=== PATIENT | female | born 1995 | race Caucasian/White ===

== ENCOUNTER 2022-08-05 07:05 | Inpatient (IN) | payer SELFPAY ==
[2022-08-05] MEDS ORDERED: Nalbuphine 10 MG/0.5 ML Syringe IVPUSH PRN (07:17)
[2022-08-05] MEDS ORDERED: Oxytocin/Lactated Ringers 10 UNIT/1,000 ML BAG IV SCH ×2 (07:30→23:00)
[2022-08-05] MEDS ORDERED: Misoprostol 25 MCG (1/4 of 100 MCG) Tab VAG ONE (08:21)
[2022-08-05] MEDS ORDERED: fentaNYL 100 MCG/2 ML SDV EPIDUR PRN (09:52)
[2022-08-05] MEDS ORDERED: ePHEDrine 50 MG/ML SDV IVPUSH PRN (09:52)
[2022-08-05] MEDS ORDERED: diphenhydrAMINE 50 MG/ML SDV IVPUSH PRN (09:52)
[2022-08-05] MEDS: Misoprostol 25 MCG (1/4 of 100 MCG) Tab VAG SCH ×2 (12:30→16:35)
[2022-08-05] MEDS ORDERED: Misoprostol 25 MCG (1/4 of 100 MCG) Tab VAG SCH (12:30)
[2022-08-05] MEDS: Lactated Ringers 1,000 ML IV SCH ×2 (20:24→23:06)
[2022-08-05] MEDS: Bupivacaine/fentaNYL/NS 100 ML Bag EPIDUR PRN (20:38)
[2022-08-05] MEDS ORDERED: Ondansetron 4 MG/2 ML SDV IVPUSH PRN (23:00)
[2022-08-05] MEDS ORDERED: Calcium Carbonate 500 MG Tab.Chew PO PRN (23:00)
[2022-08-05] MEDS: Oxytocin/Lactated Ringers 10 UNIT/1,000 ML BAG IV SCH (23:03)
[2022-08-06] MEDS: Bupivacaine/fentaNYL/NS 100 ML Bag EPIDUR PRN (04:48)
[2022-08-06] MEDS: Lactated Ringers 1,000 ML IV SCH ×2 (05:36→08:57)
[2022-08-06] MEDS ORDERED: Bupivacaine 0.25% 10 ML SDV ONE (06:00)
[2022-08-06] MEDS ORDERED: Lidocaine 1% 10 ML MDV ONE (06:00)
[2022-08-06] MEDS: Oxytocin/Lactated Ringers 10 UNIT/1,000 ML BAG IV SCH (08:58)
[2022-08-06] MEDS ORDERED: Citric Acid/Sodium Citrate Solution 30 ML Cup PO ONE (10:49)
[2022-08-06] MEDS ORDERED: Metoclopramide 10 MG/2 ML SDV IVPUSH ONE (10:49)
[2022-08-06] MEDS ORDERED: Sodium Chloride 0.9% 10 ML Syringe FLUSH PRN (10:49)
[2022-08-06] MEDS ORDERED: Citric Acid/Sodium Citrate Solution 30 ML Cup ONE (10:50)
[2022-08-06] MEDS ORDERED: Metoclopramide 10 MG/2 ML SDV ONE (10:50)
[2022-08-06] MEDS ORDERED: Bupivacaine 0.5% 30 ML SDV ONE (10:54)
[2022-08-06] MEDS ORDERED: Oxytocin 10 Units/1 ML SDV ONE (10:55)
[2022-08-06] MEDS ORDERED: Ketorolac 30 MG/ML SDV ONE (10:55)
[2022-08-06] MEDS ORDERED: Ondansetron 4 MG/2 ML SDV ONE (10:55)
[2022-08-06] MEDS ORDERED: ceFAZolin 2 GM Vial ONE (10:55)
[2022-08-06] MEDS ORDERED: Morphine PF 1 MG/ML Amp ONE (10:56)
[2022-08-06] MEDS ORDERED: Sodium Bicarbonate 8.4% 50 MEQ/50 ML SDV ONE (10:56)
[2022-08-06] MEDS ORDERED: Lidocaine 2% with EPINEPHrine 1:200,000 20 ML SDV ONE (10:56)
[2022-08-06] MEDS ORDERED: fentaNYL 100 MCG/2 ML SDV ONE (10:57)
[2022-08-06] MEDS ORDERED: Lactated Ringers 1,000 ML IV SCH (11:00)
[2022-08-06] MEDS ORDERED: Azithromycin 500 MG in Sodium Chloride 0.9% 250 ML IV SCH (11:30)
[2022-08-06] MEDS ORDERED: Methylergonovine 0.2 MG/1 ML Amp ONE (11:36)
[2022-08-06] MEDS ORDERED: Tranexamic Acid 1,000 MG/10 ML Vial ONE (11:37)
[2022-08-06] MEDS ORDERED: Phenylephrine HCl In 0.9% NaCl 1 MG/10 ML Vial ONE (11:38)
[2022-08-06] MEDS ORDERED: fentaNYL 100 MCG/2 ML SDV IVPUSH PRN (12:11)
[2022-08-06] MEDS ORDERED: Meperidine 50 MG/ML Vial IVPUSH PRN (12:11)
[2022-08-06] MEDS ORDERED: Ondansetron 4 MG/2 ML SDV IVPUSH PRN (12:11)
[2022-08-06] MEDS ORDERED: diphenhydrAMINE 50 MG/ML SDV IVPUSH PRN ×2 (12:11→14:21)
[2022-08-06] MEDS ORDERED: Dextrose 5%-Lactated Ringers 1,000 ML IV SCH (14:21)
[2022-08-06] MEDS ORDERED: Acetaminophen/oxyCODONE 325-5 MG Tab PO PRN (14:21)
[2022-08-06] MEDS ORDERED: Acetaminophen 325 MG Tab PO PRN (14:21)
[2022-08-06] MEDS ORDERED: ePHEDrine 50 MG/ML SDV IVPUSH PRN (14:21)
[2022-08-06] MEDS ORDERED: Naloxone 0.4 MG/ML SDV IVPUSH PRN (14:21)
[2022-08-06] MEDS: Acetaminophen/oxyCODONE 325-5 MG Tab PO PRN (17:24)
[2022-08-06] MEDS: Ketorolac 30 MG/ML SDV IVPUSH SCH (17:24)
[2022-08-06] MEDS ORDERED: Sodium Chloride 0.9% 10 ML Syringe FLUSH SCH (21:00)
[2022-08-07] MEDS: Ketorolac 30 MG/ML SDV IVPUSH SCH ×2 (00:03→05:40)
[2022-08-07] MEDS: Acetaminophen/oxyCODONE 325-5 MG Tab PO PRN ×3 (07:27→19:24)
[2022-08-07] MEDS: Ibuprofen 600 MG Tab PO PRN ×2 (12:10→18:00)
[2022-08-08] MEDS: Ibuprofen 600 MG Tab PO PRN ×2 (08:45→09:10)
== END 2022-08-08 13:05 | disposition home or self-care (01) | DRG 787 ==
LOC: UNDOADMOB 07:05 → JD.OB 07:05 → OBSVTOIN 08-06 11:41 → JD.OB 08-06 11:42
PROVIDERS: ADMIT Obstetrics & Gynecology; ATTEND Obstetrics & Gynecology
PROC: 10D00Z1 Extraction of Products of Conception, Low, Open Approach (ICD-10-PCS; principal; 2022-08-06)
PROC: 3E0R3BZ Introduction of Anesthetic Agent into Spinal Canal, Percutaneous Approach (ICD-10-PCS; 2022-08-06)
PROC: 00HU33Z Insertion of Infusion Device into Spinal Canal, Percutaneous Approach (ICD-10-PCS; 2022-08-06)
PROC: 10H07YZ Insertion of Other Device into Products of Conception, Via Natural or Artificial Opening (ICD-10-PCS; 2022-08-06)
DX: O62.0 Primary inadequate contractions (principal); Z3A.39 39 weeks gestation of pregnancy; Z37.0 Single live birth; O72.1 Other immediate postpartum hemorrhage; O99.52 Diseases of the respiratory system complicating childbirth; J45.909 Unspecified asthma, uncomplicated
CPT/HCPCS: 01967; 36415; 51702; 59025; 85025; 86592; 86850; 86900; 86901; 94762; A9270-GY; J0456; J0690; J1885; J2175; J2210; J2274; J2405; J2590; J2765; J3010; J3490; J7050; J7120; J7121

== ENCOUNTER 2024-05-25 05:22 | Inpatient (IN) | payer BC ==
[~2024-05-25 05:22] MED LIST: Sodium Chloride 0.9% 10 ML Syringe FLUSH PRN
[2024-05-25 05:54] LABS: BASOPHILS PERCENT AUTO 0.3 % (0.0-1.0); EOSINOPHILS ABSOLUTE AUTO 0.1 K/mm3 (0.0-0.4); EOSINOPHILS PERCENT AUTO 0.6 % (0.0-6.0); HEMATOCRIT 34.7 % (37.0-47.0); HEMOGLOBIN 12.4 gm/dl (12.0-16.0); IMMATURE GRAN ABSOLUTE AUTO 0.14 K/mm3 (0.00-0.05); IMMATURE GRAN PERCENT AUTO 1.2 % (0.0-0.4); LYMPHOCYTES ABSOLUTE AUTO 4.3 K/mm3 (1.0-4.8); LYMPHOCYTES PERCENT AUTO 35.5 % (24.0-44.0); MEAN CORPUSCULAR HEMOGLOBIN 34.2 pg (28.0-32.0); MEAN CORPUSCULAR HGB CONC 35.7 g/dl (32.0-36.0); MEAN CORPUSCULAR VOLUME 95.6 fl (83.0-99.0); MEAN PLATELET VOLUME 9.3 fl (9.4-12.3); MONOCYTES PERCENT AUTO 8.4 % (0.0-8.0); NEUTROPHILS ABSOLUTE AUTO 6.5 K/mm3 (1.8-7.7); PLATELET COUNT,PLT 177 K/mm3 (150-400); RED BLOOD CELL COUNT 3.63 M/mm3 (4.10-5.30)
[2024-05-25] MEDS: Lactated Ringers 1,000 ML IV SCH ×2 (06:06→09:40)
[2024-05-25] MEDS: Metoclopramide 10 MG/2 ML SDV IVPUSH ONE (07:19)
[2024-05-25] MEDS: Citric Acid/Sodium Citrate Solution 30 ML Cup PO ONE (07:20)
[2024-05-25] MEDS ORDERED: Morphine PF 10 MG/10 ML SDV ONE (07:30)
[2024-05-25] MEDS ORDERED: ceFAZolin 2 GM Vial ONE (07:41)
[2024-05-25] MEDS: Bupivacaine 0.5% 30 ML SDV ONE (07:57)
[2024-05-25] MEDS ORDERED: Oxytocin 10 Units/1 ML SDV ONE (08:01)
[2024-05-25] MEDS ORDERED: ePHEDrine 50 MG/ML SDV ONE (08:01)
[2024-05-25] MEDS ORDERED: Methylergonovine 0.2 MG/1 ML Amp ONE (08:04)
[2024-05-25] MEDS ORDERED: Misoprostol 200 MCG Tab ONE (08:07)
[2024-05-25] MEDS ORDERED: Phenylephrine 1% 10 MG/ML SDV ONE (08:11)
[2024-05-25] MEDS: ceFAZolin 2 GM in Water For Injection, Sterile 20 ML IV ONE (08:18)
[2024-05-25] MEDS ORDERED: diphenhydrAMINE 50 MG/ML SDV IVPUSH PRN ×2 (08:40→08:54)
[2024-05-25] MEDS ORDERED: Meperidine 50 MG/ML Vial IVPUSH PRN (08:40)
[2024-05-25] MEDS ORDERED: Sodium Chloride 0.9% 10 ML Syringe FLUSH PRN (08:40)
[2024-05-25] MEDS ORDERED: Ondansetron 4 MG/2 ML SDV IVPUSH PRN (08:40)
[2024-05-25] MEDS ORDERED: fentaNYL 100 MCG/2 ML SDV IVPUSH PRN (08:40)
[2024-05-25] MEDS ORDERED: Sennosides 8.6 MG Tab PO PRN (08:54)
[2024-05-25] MEDS ORDERED: Naloxone 0.4 MG/ML SDV IVPUSH PRN (08:54)
[2024-05-25] MEDS ORDERED: ePHEDrine 50 MG/ML SDV IVPUSH PRN (08:54)
[2024-05-25] MEDS ORDERED: Sodium Chloride 0.9% 10 ML Syringe FLUSH SCH (09:00)
[2024-05-25] MEDS ORDERED: Dextrose 5%-Lactated Ringers 1,000 ML IV SCH (09:00)
[2024-05-25] MEDS: Ondansetron 4 MG/2 ML SDV IVPUSH PRN (10:35)
[2024-05-25] MEDS: Oxytocin/0.9 % Sodium Chloride 30 UNIT/500 ML BAG IV SCH (11:10)
[2024-05-25] MEDS: Tranexamic Acid 1,000 MG/10 ML Vial IVPUSH ONE (11:12)
[2024-05-25] MEDS: Ketorolac 30 MG/ML SDV IVPUSH SCH (11:25)
[2024-05-25 11:43] LABS: BASOPHILS PERCENT AUTO 0.2 % (0.0-1.0); HEMATOCRIT 26.3 % (37.0-47.0); HEMOGLOBIN 9.2 gm/dl (12.0-16.0); LYMPHOCYTES ABSOLUTE AUTO 3.3 K/mm3 (1.0-4.8); LYMPHOCYTES PERCENT AUTO 16.4 % (24.0-44.0); MEAN CORPUSCULAR HEMOGLOBIN 34.1 pg (28.0-32.0); MEAN CORPUSCULAR VOLUME 97.4 fl (83.0-99.0); MEAN PLATELET VOLUME 9.6 fl (9.4-12.3); MONOCYTES ABSOLUTE AUTO 1.3 K/mm3 (0.0-0.8); MONOCYTES PERCENT AUTO 6.4 % (0.0-8.0); NEUTROPHILS ABSOLUTE AUTO 15.2 K/mm3 (1.8-7.7); PLATELET COUNT,PLT 152 K/mm3 (150-400); WHITE BLOOD CELL COUNT,WBC 20.01 K/mm3 (3.9-11.3)
[2024-05-25 11:56] LABS: INR 0.96; PROTHROMBIN TIME 10.2 SECONDS (9.7-12.0)
[2024-05-25] MEDS: Sodium Chloride 0.9% 10 ML Syringe FLUSH SCH (23:05)
[2024-05-26] MEDS: Ibuprofen 600 MG Tab PO SCH (06:25)
[2024-05-26] MEDS: Simethicone 80 MG Tab.Chew PO PRN (06:27)
[2024-05-26 06:53] LABS: BASOPHILS PERCENT AUTO 0.2 % (0.0-1.0); EOSINOPHILS PERCENT AUTO 0.3 % (0.0-6.0); HEMATOCRIT 21.4 % (37.0-47.0); IMMATURE GRAN ABSOLUTE AUTO 0.12 K/mm3 (0.00-0.05); LYMPHOCYTES ABSOLUTE AUTO 2.5 K/mm3 (1.0-4.8); LYMPHOCYTES PERCENT AUTO 20.4 % (24.0-44.0); MEAN CORPUSCULAR HEMOGLOBIN 33.8 pg (28.0-32.0); MEAN CORPUSCULAR HGB CONC 34.1 g/dl (32.0-36.0); MEAN CORPUSCULAR VOLUME 99.1 fl (83.0-99.0); MEAN PLATELET VOLUME 9.5 fl (9.4-12.3); MONOCYTES PERCENT AUTO 8.5 % (0.0-8.0); NEUTROPHILS ABSOLUTE AUTO 8.5 K/mm3 (1.8-7.7); NEUTROPHILS PERCENT AUTO 69.6 % (41.0-71.0); PLATELET COUNT,PLT 130 K/mm3 (150-400); RED BLOOD CELL COUNT 2.16 M/mm3 (4.10-5.30); WHITE BLOOD CELL COUNT,WBC 12.18 K/mm3 (3.9-11.3)
[2024-05-26 07:21] LABS: HEMOGLOBIN 7.3 gm/dl (12.0-16.0)
[2024-05-26] MEDS: Acetaminophen/oxyCODONE 325-5 MG Tab PO PRN ×2 (09:38→20:02)
[2024-05-26 18:54] LABS: HEMATOCRIT 20.6 % (37.0-47.0); MEAN CORPUSCULAR HEMOGLOBIN 34.5 pg (28.0-32.0); MEAN CORPUSCULAR VOLUME 101.5 fl (83.0-99.0); MEAN PLATELET VOLUME 9.4 fl (9.4-12.3); PLATELET COUNT,PLT 146 K/mm3 (150-400); RED BLOOD CELL COUNT 2.03 M/mm3 (4.10-5.30); WHITE BLOOD CELL COUNT,WBC 12.69 K/mm3 (3.9-11.3)
[2024-05-26] MEDS: Ferrous Sulfate 324 MG Tab.EC PO SCH (20:32)
[2024-05-27] MEDS: Docusate Sodium 100 MG Cap PO PRN (09:58)
[2024-05-27] MEDS ORDERED: Ferrous Sulfate 324 MG Tab.EC PO SCH (20:00)
== END 2024-05-27 15:08 | disposition home or self-care (01) | DRG 540 ==
LOC: JD.OB 05:22 → OBSVTOIN 05:22
PROVIDERS: ADMIT Obstetrics & Gynecology; ATTEND Obstetrics & Gynecology
PROC: 10D00Z1 Extraction of Products of Conception, Low, Open Approach (ICD-10-PCS; principal; 2024-05-25 07:45)
DX: O30.043 Twin pregnancy, dichorionic/diamniotic, third trimester (principal); Z37.2 Twins, both liveborn; D62 Acute posthemorrhagic anemia; O34.211 Maternal care for low transverse scar from previous cesarean delivery; O90.81 Anemia of the puerperium; Z3A.38 38 weeks gestation of pregnancy
CPT/HCPCS: 36415; 59025; 85025; 85027; 85610; 86592; 86850; 86900; 86901; A9270-GY; J0665; J0690; J1885; J2210; J2274; J2371; J2405; J2590; J2765; J3490; J7120; J7999